=== PATIENT | female | born 1975 | race Caucasian/White ===

== ENCOUNTER → 2017-03-04 | Outpatient (CLI) | payer BC, OTHER | LOC: FIMAGING 08:45 | PROVIDERS: ATTEND Family Medicine | DX: Z12.31 Encounter for screening mammogram for malignant neoplasm of breast (principal) | CPT/HCPCS: G0202 ==

== ENCOUNTER 2018-02-06 07:05 | Observation (INO) | payer BC, OTHER ==
[2018-02-06] MEDS ORDERED: NS 1,000 ML IV ONE (07:06)
--- NOTE | 2018-02-06 07:25 | CPEKG ---
Heart Rate: 71 RR Interval: 845 P-R Interval: 140 QRSD Interval: 76 QT Interval: 412 QTC Interval: 448 P Rowe: 72 QRS Rowe: 84 T Wave Rowe: 56 EKG Severity - NORMAL ECG - EKG Impression: SINUS RHYTHM Electronically Signed By: Jack Conner 06-Feb-2018 09:23:22
[2018-02-06 07:37] LABS: PLATELET COUNT 274 10^3/uL (150-400)
[2018-02-06 07:45] LABS: PROTIME(PATIENT) 13.4 SEC (12.0-15.0)
[2018-02-06] MEDS ORDERED: HEPARIN 10,000 UNIT/10 ML MDV (1,000 UNIT/ML) ONE (08:20)
[2018-02-06] MEDS ORDERED: LIDOCAINE 1% 300 MG/30 ML SDV ONE (08:20)
[2018-02-06] MEDS ORDERED: ISOPROTERENOL HCL/D5W 0.2 MG/50 ML BAG IV ONE (08:21)
--- NOTE | 2018-02-06 08:33 | PDANEPAE ---
ANE History of Present Illness Hx SVT ANE Past Medical History - Pulmonary History Hx Sleep Apnea: No ANE Review of Systems Review of Systems: ANE Patient History - Allergies Allergies/Adverse Reactions: codeine Allergy (Verified 02/03/18 09:52) Other-Enter Comments - Home Medications Home medications: home medication list seen and reviewed Home Medications: Acetaminophen [Tylenol 325mg (*)] 325 mg PO DAILY PRN 02/03/18 [Last Taken 02/05 17:00] Albuterol [Proventil Inhaler HFA (*)] 1 - 2 puffs IH DAILY PRN 02/03/18 [Last Taken 10/29/17 20:00] Famotidine [Pepcid 20 MG (*)] 20 mg PO DAILY18 02/03/18 [Last Taken 02/05/18 18: 00] Herbals/Supplements -Info Only 1 ea PO DAILY 02/03/18 [Last Taken 02/05/18 08:00 ] Multivitamins [Multivitamin (*)] 1 each PO DAILY 02/03/18 [Last Taken 02/05/18 18:00] PARoxetine HCL [Paxil 20mg (*)] 20 mg PO DAILY 02/03/18 [Last Taken 02/05/18 18: 00] - Anes Hx Anes Hx: no prior problems - Smoking Hx Smoking Status: Never smoked ANE Labs/Vital Signs - Labs Result Diagrams: 02/06/18 07:30 02/06/18 07:30 - Vital Signs Height: 164 cm Weight: 50.4 kg ANE Physical Exam - Airway Neck exam: FROM Mallampati Score: Class 1 Mouth exam: normal dental/mouth exam - Pulmonary Pulmonary: no respiratory distress - Cardiovascular Cardiovascular: regular rate and rhythym - ASA Status ASA Status: II ANE Anesthesia Plan Anesthesia Plan: general endotracheal anesthesia
--- NOTE | 2018-02-06 08:50 | PDGENHP ---
History & Physical Chief Complaint: palpitation History of Present Illness: Palpitations , history unchanged Pertinent Past, Social, Family History: Reviewed and unchanged Relevant Physical Exam: Unchanged and normal Cardiorespiratory Assessment: s1s2 regular no s3
[2018-02-06] MEDS ORDERED: PROPOFOL 200 MG/20 ML VIAL ONE (09:23)
[2018-02-06] MEDS ORDERED: fentaNYL 100 MCG/2 ML INJ ONE ×2 (09:23)
[2018-02-06] MEDS ORDERED: PROPOFOL/EMULSION 500 MG/50 ML BOTTLE IV ONE (09:23)
[2018-02-06] MEDS ORDERED: ROCURONIUM 100 MG/10 ML VIAL ONE (09:24)
[2018-02-06] MEDS ORDERED: PHENYLEPHRINE HCL 100 MCG/ML SYR ONE (09:43)
[2018-02-06] MEDS ORDERED: ONDANSETRON 4 MG/2 ML VIAL ONE (09:44)
[2018-02-06] MEDS ORDERED: DEXAMETHASONE 4 MG/ML VIAL ONE (09:44)
[2018-02-06] MEDS ORDERED: BUPIVACAINE 0.75% 10 ML SDV ONE (09:45)
[2018-02-06] MEDS ORDERED: SUGAMMADEX SODIUM 200 MG/2 ML VIAL IVP ONE (11:09)
[2018-02-06] MEDS ORDERED: ONDANSETRON 4 MG/2 ML VIAL IVP PRN (11:10)
[2018-02-06] MEDS ORDERED: NALOXONE HCL 0.4 MG/ML INJ IVP PRN (11:10)
[2018-02-06] MEDS ORDERED: ALBUTEROL 60 PUFFS/8 GM MDI IH PRN (11:19)
[2018-02-06] MEDS ORDERED: ACETAMINOPHEN 325 MG TAB PO PRN (11:19)
[2018-02-06] MEDS ORDERED: FAMOTIDINE 20 MG TAB PO SCH (18:00)
[2018-02-06] MEDS: ASPIRIN EC 325 MG TAB PO SCH (18:19)
[2018-02-07 04:17] LABS: PLATELET COUNT 247 10^3/uL (150-400)
[2018-02-07 07:25] VITALS: BP 100/66
[2018-02-07] MEDS ORDERED: MULTIVITAMINS 1 EACH TAB PO SCH (09:00)
[2018-02-07] MEDS ORDERED: Herbals/Supplements -Info Only PO SCH (09:00)
[2018-02-07] MEDS ORDERED: PARoxetine HCL 20 MG TAB PO SCH (09:00)
[2018-02-07] MEDS: ASPIRIN EC 325 MG TAB PO SCH (09:15)
--- NOTE | 2018-02-07 15:07 | GDS ---
[f rep st] DISCHARGE SUMMARY ADMIT DIAGNOSIS: 1. Palpitations. 2. Supraventricular tachycardia. 3. Planned electrophysiology study with possible ablation. DISCHARGE DIAGNOSIS: 1. Status post successful AV and RT ablation, with no complications. 2. Supraventricular tachycardia. HOSPITAL COURSE: [place] was evaluated in clinic by Dr. Stevo Saucedo in December 2017, with history of p alpitations and racing heart rates. She had one episode lasting 2-1/2 hours in August 2017, and the n previous episode in May 2017 lasting 1 hour and 15 minutes. She did have a Holter monitor done in October 2017, indicating a self-limited episode of narrow complex tachycardia at 150 beats per tawana te. 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 Due to the arrhythmias and her anxiety related to the onset of ar rhythmias, it was decided the best course of action would be consideration for ablation therapy. She was in agreement with this plan. This was discussed at length with her, including risks and benefit s of the procedure. When she saw Dr. Saucedo in clinic on December 25, 2017, she was taken to the EP lab, whe re Dr. Saucedo was able to isolate and successfully do AVNRT ablation. She has been up ambulating with no groin problems. She has no dizziness, lightheadedness. Her pie topper has been stable. A t this time she is stable for discharge. ALLERGIES: She does have medication allergies to codeine. MEDICATIONS: She will go home on aspirin 325 mg enteric-coated daily, and resume her herbal suppleme nts 1 daily, Pepcid 20 mg daily, Proventil inhaler 1-2 puffs daily as needed, Paxil 20 mg daily, mult ivitamin 1 daily, Tylenol 325 mg daily as needed. PHYSICAL EXAMINATION: VITAL SIGNS: On day of discharge, blood pressure 100/66, heart rate 84 and re gular, oxygen saturation 98%, temperature 36.6 Celsius. EKG showed normal sinus rhythm. HEART: Rate regular. No murmurs, rubs, gallops. LUNGS: Lungs sounds are clear to auscultation. No wheezes, r ales, or rhonchi. EXTREMITIES: Peripheral pulses are intact bilaterally at 2+. Groin site intact, with no bleeding, induration or pain. DISCHARGE PLAN: 1. She will be discharged home on the above medications. She is to take the aspirin 325 mg for 4 wee ks. 2. She should follow up with Dr. Saucedo in 3 weeks as previously scheduled. 3. Groin site precautions were reviewed with her verbally and written. 4. For 1 week, no heavy lifting, pushing, pulling greater than 10 pounds. 5. Should groin sites bleed, hold firm pressure, and if bleeding not stopping, go to the emergency r oom. 6. Splint groin sites when sneezing, coughing or having bowel movements during the first week. 7. At this time, she currently is stable for discharge. /[id number]/MODL
--- NOTE | 2018-02-07 16:31 | EPPROC ---
Electrophysiology Procedure Note: PROCEDURES PERFORMED: 33996-05 EP evaluation with RA/RV/LA pace/record, with arrhythmia induction 35013-72 EP evaluation with RA/RV pace record, insert/reposition catheter, with arrhythmia induction 15326 Intracardiac catheter ablation, SVT arrhythmogenic focus [id number] 3D mapping Fluoroscopy INDICATION: Symptomatic SVT with lightheadedness and dizziness PROCEDURE: Catheters & Anesthesia: The patient arrived in the Electrophysiology Laboratory in the fasting state. The right clavicular region, right groin, and left groin area were prepped and draped in the usual sterile manner. Anesthesiologist administered general anesthesia. Appropriate non-invasive blood pressure, pulse oximetry and end- tidal CO2 monitoring was established. All catheters were placed percutaneously using the modified Seldinger technique , and advanced into position under fluoroscopic guidance. One CRD2 catheter was advanced to the His-bundle position via the right femoral vein. . One #7 Korean deflectable catheter with 10 pairs of electrodes was placed via the right femoral vein into the coronary sinus. Programmed stimulation was performed from the right atrium, right ventricle and coronary sinus (left atrium). Parahisian pacing demonstrated constant H-A interval with changing V-A intervals and stimulus-A intervals during capture and loss of capture of proximal RBB proving retrograde conduction over AV node. AVNRT was induced easily during Atrial pacing. VA during SVT was 0ms. Concentric conduction. VA during Vpacing 100ms. Ventricular extrastimuli delivered during tachycardia terminated the tachycardia. w Mapping of the right atrium and coronary sinus during AVNRT identified earliest atrial activation above the tendon of Farhan at a level slightly posterior to the level of the His bundle, consistent with retrograde conduction over the fast AV sharron pathway. A #8 [place] deflectable quadrapolar electrode catheter (2mm-5mm-2mm spacing) with 4 mm tip electrode and sensor for the 3D mapping Carto system was advanced to the right atrium. 3 D mapping of the inter-atrial septum and coronary sinus was performed and location of the AV node was marked. RF applications were delivered to the region between the tricuspid annulus and the coronary sinus ostium, at the level of the upper edge of the coronary sinus ostium. Radiofrequency applications were also delivered along the roof of the proximal coronary sinus. Junctional rhythm occurred during all of the RF applications. Programmed stimulation was continued post ablation at baseline and during graded doses of isoproterenol upto 4mcg/min. Sustained AVNRT was not inducible. There were 2 echo beats. The catheters were removed. The long sheath was changed to a short 9 Fr sheath. The patient was transferred to the cardiovascular holding area in stable condition. Vascular access sheaths were removed in the holding area. There were no apparent complications. Results: SCL 1100ms AVWB 350/340ms TCL 400ms VA during SVT 0ms VA during SR 100ms CONCLUSIONS AV sharron reentrant tachycardia using the slow AV sharron pathway for antegrade conduction and the fast AV sharron pathway for retrograde conduction. ( Slow/fast AVNRT). Successful ablation of the slow AV sharron pathway with elimination of 1:1 antegrade conduction over the slow AV sharron pathway, all retrograde conduction over the slow AV sharron pathway and the inducibility of AVNRT. No complications. Patient Problems: Problems Problem Status Onset SVT (supraventricular tachycardia) Acute
== END 2018-02-07 11:38 | disposition home or self-care (01) ==
LOC: FCATH 07:05 → F2W 11:18
PROVIDERS: ADMIT Internal Medicine Cardiovascular Disease; ATTEND Internal Medicine Cardiovascular Disease
PROC: 4A023FZ Measurement of Cardiac Rhythm, Percutaneous Approach (ICD-10-PCS; principal; 2018-02-06)
PROC: B2161ZZ Fluoroscopy of Right and Left Heart using Low Osmolar Contrast (ICD-10-PCS; principal; 2018-02-06)
PROC: 5A1223Z Performance of Cardiac Pacing, Continuous (ICD-10-PCS; principal; 2018-02-06)
PROC: 02583ZZ Destruction of Conduction Mechanism, Percutaneous Approach (ICD-10-PCS; principal; 2018-02-06)
PROC: 02K83ZZ Map Conduction Mechanism, Percutaneous Approach (ICD-10-PCS; principal; 2018-02-06)
DX: I47.1 Supraventricular tachycardia (principal); R00.2 Palpitations
CPT/HCPCS: 93005; 93613; 93621; 93623; 93653; C1732; G0378; C1730; J1100; J1644; J2370; J2405; J2704; J3010

== ENCOUNTER → 2018-03-06 | Outpatient (CLI) | payer BC | LOC: FIMAGING 09:08 | PROVIDERS: ATTEND Family Medicine | DX: Z12.31 Encounter for screening mammogram for malignant neoplasm of breast (principal) ==